=== PATIENT | male | born 1975 | race Caucasian/White ===

== ENCOUNTER 2022-10-19 11:58 | Outpatient (CLI) | payer OTHER, SELFPAY ==
[2022-10-19 22:20] LABS: Albumin* 4.8 g/dL (3.3-5.0); Chloride* 100 mmol/L (96-114)
[2022-10-19 22:21] LABS: Potassium* 5.5 mmol/L (3.6-5.1); Sodium* 141 mmol/L (135-149)
[2022-10-19 22:23] LABS: Aspartate Amino Transferase* 64 U/L (12-35); Bilirubin Total* 0.4 mg/dL (0.1-1.5); Blood Urea Nitrogen* 9 mg/dL (5-24); Carbon Dioxide* 31 mmol/L (20-32); Cholesterol* 124 mg/dL (90-199); Creatinine* 0.9 mg/dL (0.5-1.5); Estimated Glomerular Filt Rate 105 ml/min; Glucose* 125 mg/dL (60-115); Total Protein* 7.1 g/dL (6.0-8.3)
[2022-10-19 22:24] LABS: Alanine Aminotransferase* 60 U/L (4-50); Alkaline Phosphatase* 132 U/L (40-150); HDL Cholesterol* 50 mg/dL (>=40); LDL Cholesterol Calculated 49 mg/dL (<100); Triglycerides* 126 mg/dL (40-149)
[2022-10-19 22:27] LABS: Total Protein Urine < 5 mg/dL
[2022-10-19 22:29] LABS: Creatinine Urine 92.8 mg/dL
[2022-10-19 22:34] LABS: Vitamin D 25 Hydroxy* 51 ng/mL (30-80)
[2022-10-19 22:37] LABS: Microalbumin Creatinine Ratio 10 mg/g (0-30); Microalbumin Urine < 1 mg/dL
[2022-10-19 23:05] LABS: Hepatitis C Virus Antibody* Negative (Negative)
[2022-10-19 23:07] LABS: Vitamin B12* 402 pg/mL (243-894)
== END 2022-10-19 11:59 | disposition home or self-care (01) ==
PROVIDERS: PCP Family Medicine; Visit Provider Family Medicine
DX: Z00.00 Encounter for general adult medical examination without abnormal findings (principal); E55.9 Vitamin D deficiency, unspecified; E78.5 Hyperlipidemia, unspecified; E11.9 Type 2 diabetes mellitus without complications; Z11.59 Encounter for screening for other viral diseases; Z79.899 Other long term (current) drug therapy; F20.9 Schizophrenia, unspecified; F31.9 Bipolar disorder, unspecified
CPT/HCPCS: 80053; 80061; 82043; 82306; 82570; 82607; 84156; 86803

== ENCOUNTER 2023-02-08 12:25 | Outpatient (CLI) | payer OTHER, SELFPAY | END 2023-02-08 12:26 | disposition home or self-care (01) | PROVIDERS: PCP Family Medicine; Visit Provider Family Medicine | DX: E11.9 Type 2 diabetes mellitus without complications (principal); R79.89 Other specified abnormal findings of blood chemistry | CPT/HCPCS: 80053 ==

== ENCOUNTER 2024-01-13 14:05 | Outpatient (CLI) | payer OTHER, SELFPAY | END 2024-01-13 14:06 | disposition home or self-care (01) | PROVIDERS: PCP Family Medicine; Visit Provider Family Medicine | DX: E55.9 Vitamin D deficiency, unspecified (principal); E11.9 Type 2 diabetes mellitus without complications; E78.5 Hyperlipidemia, unspecified; R79.89 Other specified abnormal findings of blood chemistry; F20.9 Schizophrenia, unspecified; F31.9 Bipolar disorder, unspecified; Z13.29 Encounter for screening for other suspected endocrine disorder | CPT/HCPCS: 80053; 80061; 82043; 82306; 82570; 82607 ==

== ENCOUNTER 2025-02-22 13:02 | Outpatient (CLI) | payer OTHER, SELFPAY | END 2025-02-22 13:03 | disposition home or self-care (01) | PROVIDERS: PCP Family Medicine; Visit Provider Family Medicine | DX: E78.5 Hyperlipidemia, unspecified (principal); E11.65 Type 2 diabetes mellitus with hyperglycemia; E55.9 Vitamin D deficiency, unspecified; Z79.84 Long term (current) use of oral hypoglycemic drugs; Z12.5 Encounter for screening for malignant neoplasm of prostate; Z13.21 Encounter for screening for nutritional disorder | CPT/HCPCS: 80053; 80061; 82043; 82306; 82570; 82607; G0103 ==

== ENCOUNTER 2025-04-09 10:45 | Outpatient (CLI) | payer OTHER, SELFPAY ==
[2025-04-09 21:52] LABS: Basophils Absolute Auto 0.03 K/uL (0.00-0.30); Basophils Percent Auto 0.4 % (0.0-3.0); Eosinophils Percent Auto 1.2 % (0.0-7.0); Hematocrit 41.3 % (37.0-53.0); Hemoglobin* 13.5 gm/dL (13.5-17.5); Immature Granulocytes Abs Auto 0.02 K/uL (0.00-0.30); Immature Granulocytes Pct Auto 0.2 %; Lymphocytes Absolute Auto 2.33 K/uL (0.90-2.90); Lymphocytes Percent Auto 28.9 % (20-44); Mean Corpuscular HGB Conc 33 gm/dL (32-36); Mean Corpuscular Hemoglobin 31 pg (26-34); Mean Corpuscular Volume 96 fL (80-100); Monocytes Percent Auto 6.5 % (0.0-11.0); Neutrophils Absolute Auto 5.06 K/uL (1.7-7.0); Neutrophils Percent Auto 62.8 % (42.0-72.0); Platelet Count* 208 K/uL (140-440); RDW Coefficient of Variation % 13.5 % (11.5-15.5); White Blood Count* 8.06 K/uL (4.50-11.00)
[2025-04-09 21:53] LABS: Slide Review Reflex No
== END 2025-04-09 10:46 | disposition home or self-care (01) ==
LOC: NPINS 04-13 11:18
PROVIDERS: PCP Family Medicine; Visit Provider Psychiatry & Neurology Psychiatry
DX: F52.9 Unspecified sexual dysfunction not due to a substance or known physiological condition (principal); G47.9 Sleep disorder, unspecified; F43.10 Post-traumatic stress disorder, unspecified; F41.1 Generalized anxiety disorder; Z79.899 Other long term (current) drug therapy
CPT/HCPCS: 85025

== ENCOUNTER 2025-05-10 12:46 | Outpatient (CLI) | payer OTHER, SELFPAY ==
[2025-05-07 12:48] LABS: Basophils Absolute Auto 0.05 K/uL (0.00-0.30); Basophils Percent Auto 0.7 % (0.0-3.0); Eosinophils Absolute Auto 0.15 K/uL (0.00-0.50); Eosinophils Percent Auto 2.1 % (0.0-7.0); Hematocrit 45.1 % (37.0-53.0); Hemoglobin* 14.9 gm/dL (13.5-17.5); Immature Granulocytes Abs Auto 0.01 K/uL (0.00-0.30); Immature Granulocytes Pct Auto 0.1 %; Lymphocytes Absolute Auto 2.84 K/uL (0.90-2.90); Lymphocytes Percent Auto 39.3 % (20-44); Mean Corpuscular HGB Conc 33 gm/dL (32-36); Mean Corpuscular Hemoglobin 32 pg (26-34); Mean Corpuscular Volume 96 fL (80-100); Monocytes Percent Auto 6.1 % (0.0-11.0); Neutrophils Absolute Auto 3.73 K/uL (1.7-7.0); Neutrophils Percent Auto 51.7 % (42.0-72.0); Platelet Count* 210 K/uL (140-440); RDW Coefficient of Variation % 13.7 % (11.5-15.5); Red Blood Count 4.69 m/uL (4.30-5.90); White Blood Count* 7.22 K/uL (4.50-11.00)
[2025-05-07 12:50] LABS: Slide Review Reflex No
--- OUTSIDE RECORDS SUMMARY | 2025-05-11 02:19 | XMS_ITS | Clinical Summary ---
Author Organization [place] Address [facility] [place] [address] Care Team Providers Care Auxiliary Equipment Operator Name Role Phone Preet Link MD Primary Care Provider + [phone] Finn Hutchison [facility] Unavailable [phone] Allergies Active Allergy Reactions Criticality Noted Date Comments Erythromycin Rash Low 10/06/2006 Medications metFORMIN (GLUCOPHAGE-XR) 500 MG 24 hr tablet Take 500 mg by mouth daily (with dinner) Active venlafaxine (EFFEXOR-XR) 150 MG 24 hr capsule Take 150 mg by mouth daily 08/15/20 16 Active venlafaxine (EFFEXOR XR) 75 MG 24 hr capsule Take 75 mg by mouth daily Active atorvastatin (LIPITOR) 10 MG tablet Take 10 mg by mouth daily Active vitamin D3 (CHOLECALCIFEROL) 2000 units (50 mcg) tablet Take 2,000 Units by mouth daily Active ARIPiprazole (ABILIFY) 2 MG tablet Take 2 mg by mouth daily Active multivitamin, therapeutic (THERA-VIT) TABS tablet Take 1 tablet by mouth daily Active senna-docusate (SENOKOT-S/DANIELLE LACE) 8.6-50 MG tabletIndications :Constipation, unspecified constipation type Take 1 tablet by mouth 2 times daily as needed for constipation 30 tablet 1 02/18/20 20 Active senna-docusate (SENOKOT-S/DANIELLE LACE) 8.6-50 MG tabletIndications :Constipation, unspecified constipation type Take 2 tablets by mouth 2 times daily 120 tablet 02/18/20 20 Active cloZAPine (CLOZARIL) 100 MG tabletIndications :Paranoid schizophrenia (H) Take 3 tablets (300 mg) by mouth At Bedtime 21 tablet 02/22/20 20 Active Active Problems Problem Noted Date Diagnosed Date Paranoid schizophrenia 01/29/2020 Social History Tobacco Use Types Packs/Day Years Used Date Smoking Tobacco: Never Assessed Sex and Gender Information Value Date Recorded Sex Assigned at Not on file Legal Sex Male 12:38 PM CDT Gender Identity Not on file Sexual Orientation Not on file Last Filed Vital Signs Vital Sign Reading Time Taken Comments Blood Pressure 125/85 02/22/2020 7:37 AM CDT Pulse 98 02/22/2020 7:37 AM CDT Temperature 36.4 C (97.6 F) 02/22/2020 7:37 AM CDT Respiratory Rate 16 02/19/2020 10:2 8 AM CDT Oxygen Saturation 96% 02/20/2020 8:33 AM CDT Inhaled Oxygen Concentration - - Weight 105.2 kg (231 lb 14.4 oz) 02/21/2020 7:00 AM CDT Height 167.6 cm (5' 6) 01/29/2020 7:45 PM CDT Body Mass Index 37.43 01/29/2020 7:45 PM CDT Plan of Treatment Not on file Insurance [place] [facility] * Guarantor: Colt Guadarrama Account Type Relation to Patient Date of Phone Billing Address Medication Therapy Self [address] [place] [address] [place] Advance Directives For more information, please contact: [phone] * Full Code (Latest Code Status on File) Date Activated Date Inactivated Comments 01/29/2020 8:20 PM 02/22/2020 4:49 PM Question Answer Comments Code status determined by: Discussion with milka nt/legal decision maker Care Teams Auxiliary Equipment Operator Relationship Specialty Start Date End Date Preet Link MD PCP - General Family Practice 03/23/19 Finn Hutchison [facility] [address] [place], [place] [address] Pharmacist Pharmacist Clinician- Clinical Boiler Assistant Operator 02/24/20
--- OUTSIDE RECORDS SUMMARY | 2025-05-11 02:19 | XMS_ITS | Clinical Summary ---
Author Organization [facility] Address [address] [place] [id number] Care Team Providers Care Decision Support Analyst Name Role Phone Preet Link MD Primary Care Provide r Allergies Active Allergy Reactions Criticality Noted Date Comments Erythromycin Rash 10/06/2006 Medications clozapine (CLOZARIL) 100 mg tabletIndications:martinez icidal behavior in schizoaffective disorder Take 3 tablets by mouth at bedtime. 21 tablet 4 0 Active naphazoline-pheniram ine (VISINE-A) 0.025-0.3 % ophthalmic solutionIndications: Dry eye 1 Drop 4 times daily if needed for Eye Irritation. 1 Bottle 1 8 Active metFORMIN (GLUCOPHAGE XR) 500 mg Extended-Release tabletIndications:Co ntrolled type 2 diabetes mellitus without complication, without long-term current use of insulin (HC) Take 1 tablet by mouth once daily with evening meal. 60 tablet 9 Active Cholecalciferol, Vitamin D3, 2,000 unit tabletIndications:De pressive disorder Take 1 tablet by mouth once daily. 30 tablet 9 Active atorvastatin (LIPITOR) 10 mg tabletIndications:De pressive disorder Take 1 tablet by mouth at bedtime. 30 tablet 9 Active glipiZIDE (GLUCOTROL) 5 mg tablet Take 5 mg by mouth two times daily before meals. 3 Active Thera Take 1 Tablet by mouth once daily. 3 Active venlafaxine (EFFEXOR XR) 150 mg Extended-Release capsuleIndications:S chizoaffective disorder, depressive type (HC) Take 1 Capsule (150 mg) by mouth once daily with a meal. 30 Capsule 09/11/2023 4:23 PM CDT 3 Active Active Problems Problem Noted Date Diagnosed Date Schizoaffective disorder, depressive type 2022 Diabetes type 2, controlled 02/14/2016 Overview (02/14/2016): Diabetes type 2- dx 02/2016- started metformin Headache(784.0) 11/18/2012 Overview (11/18/2012): Uses Tramadol prn HAs Lives in [facility] 11/18/2012 Overview (06/13/2016): [facility] commercial portfolio manager and coordinator Lakia Kinney [phone] Depressive disorder, not elsewhere classified Bipolar disorder, unspecified 08/30/2010 Paranoid schizophrenia, unspecified condition Overview (02/14/2017): Jamie Pugh Following now with Candice Duncan Abnormal liver function test 08/09/2008 Unspecified constipation Nausea alone Resolved Problems Problem Noted Date Diagnosed Date Resolved Date Schizoaffective disorder, un specified condition 08/30/2010 11/18/2012 Paranoid schizophrenia, unspecified condition 08/30/20 10 11/18/2012 Paranoid schizophrenia, unspecified condition 04/11/20 10 11/18/2012 Paranoid schizophrenia, rn chronic philip condition with acute exacerbation 02/28/2010 11/18/2012 Paranoid schizophrenia, subc hronic condition with acute exacerbation 09/24/2007 11/18/2012 Schizoaffective Disorder, Un specified Condition 12/04/2006 11/18/2012 Immunizations Immunization Administration Dates Next Due MMR 02/02/1992 Td (Age >=7 Years) 03/19/2000 Tdap 08/29/2009 Tuberculin (PPD) 02/13/2016, 5,01/19/2014,11/18/2012,11/20/2010, Family History Medical History Relation Name Comments Good Health Father PTSD Good Health Mother Relation Name Status Comments Father Mother Social History Tobacco Use Types Packs/Day Years Used Date Smoking Tobacco: Never Smokeless Tobacco: Never Alcohol Use Standard Drinks/Week Comments No 0 (1 standard drink = 0.6 oz pur e alcohol) PHQ-2 Answer Date Recorded PHQ-2 TOTAL SCORE 6 09/12/2023 Social Connections Answer Date Recorded Frequency of Communication with Friends and Fami ly 0 09/04/2023 Financial Resource Strain Answer Date R ecorded Difficulty of Paying Living Expenses 3 09/04/2023 Difficulty of Paying Living Expenses Not on file 09/04/2023 Food Insecurity Answer Date Recorded Do you worry your food will run out before you are able to buy more? 1 09/04/2023 Transportation Needs Answer Date Record ed Lack of Transportation (Medical) 2 09/04/2023 Housing Stability Answer Date Recorded What is your housing situation today? 1 09/04/2023 Sex and Gender Information Value Date Recorded Sex Assigned at Not on file Legal Sex Male 6:55 AM UNDERWRITING ACCOUNT REPRESENTATIVE Gender Identity Not on file Sexual Orientation Not on file Occupation Industry Job Start Date Job End Date DISABLED Not on file Not on file Not on file Obstetrics History Last Filed Vital Signs Vital Sign Reading Time Taken Comments Blood Pressure 120/74 09/12/2023 5:32 AM CDT Pulse 93 09/12/2023 5:32 AM CDT Temperature 36.4 C (97.5 F) 09/12/2023 5:32 AM CDT Respiratory Rate 14 09/12/2023 5:32 AM CDT Oxygen Saturation 96% 09/12/2023 5:32 AM CDT Inhaled Oxygen Concentration - - Weight 96.4 kg (212 lb 8 oz) 09/09/2023 5:00 AM CDT Height 166.4 cm (5' 5.5) 09/04/2023 3:18 PM CDT Body Mass Index 34.82 09/04/2023 3:18 PM CDT Plan of Treatment Health Maintenance Due Date Last Done Comments HIV for age 15-65 1989 Hepatitis C screening for ag e 18-79 1992 Hepatitis B series for 19+ ( 1 of 3 - 19+ 3-dose series) 1993 Pneumococcal series for age 50+ (1 of 2 - PCV) 1993 BMI (ht and wt on same day) for age 18+ 02/19/2019 02/19/2018, 08/06/2017, 02/14/2017, Additional history exists Colonoscopy through age 75 2019 Tetanus booster 08/29/2019 08/29/2009, 03/19/2000 Zoster (shingles) series for age 50+ (1 of 2) 2024 COVID-19 vaccine series ( - season) 2024 Depression screening for age 12+ 09/04/2024 09/04/2023, 04/17/2019, 04/08/2019, Additional history exists Influenza Vaccine (Season Ended) 2025 Lipids for age 45-75 09/08/2028 09/08/2023, 02/19/2018, 12/26/2016, Additional history exists Tdap Completed 08/29/2009 Procedures Procedure Name Priority Date/Time Associated Diagnosis Comments LIPID PANEL Early AM 09/08/2023 6:21 AM CDT from Last 3 Months or Most Recently Relevant to Health Maintenance Results * LIPID PANEL (09/08/2023 6:21 AM CDT) CHOLESTEROL,TOTAL 107 100 - 199 mg/dL 09/08/2023 3:55 PM CDT [facility] Comment: Cholesterol, Total Reference Ranges Desirable <200 mg/dL Borderline 200-239 mg/dL High >=240 mg/dL TRIGLYCERIDES 133 <150 mg/dL 09/08/2023 3:55 PM CDT [facility] HDL CHOLESTEROL 41 >40 mg/dL 3:55 PM CDT [facility] NON-HDL CHOLESTEROL 66 <145 mg/dl 09/08/2023 3:55 PM CDT [facility] CHOL/HDL RATIO 2.61 <4.50 09/08/2023 3:55 PM CDT [facility] LDL CHOLESTEROL 39 <=130 mg/dL 09/08/2023 3:55 PM CDT [facility] VLDL CHOLESTEROL 27 <=30 mg/dL 09/08/2023 3:55 PM CDT [facility] PROVIDER ORDERED STATUS RANDOM 09/08/2023 3:55 PM CDT [facility] Blood BLOOD SPECIMEN / Unknown Venipuncture / Unknown 09/08/2023 6:21 AM CDT 09/08/2023 6:24 AM CDT Felisha Cheung MD CHEMISTRY Final Result [facility] [address] [place] [address], [facility] [address] [place] [phone] from Last 3 Months or Most Recently Relevant to Health Maintenance Insurance MEDICA ACCESSABILITY SOLUTION [facility] MEDICA PMAP [place] ONLY Advance Directives * Full Code (Latest Code Status on File) Date Activated Date Inactivated Comments 09/05/2023 7:21 AM 09/12/2023 1:14 PM Question Answer Comments Code Status Discussion: Reviewed Preferences * Full Code Date Activated Date Inactivated Comments 09/04/2023 2:06 PM 09/04/2023 3:06 PM Question Answer Comments Code Status Discussion: Reviewed Preferences * Full Code Date Activated Date Inactivated Comments 04/06/2019 8:37 PM 04/16/2019 4:05 PM * Full Code Date Activated Date Inactivated Comments 08/29/2010 10:17 PM 09/05/2010 4:08 PM * Full Code Date Activated Date Inactivated Comments 04/12/2010 3:44 PM 04/27/2010 3:00 PM Care Teams Decision Support Analyst Relationship Specialty Start Date End Date Preet Link MD [address] [place] [address] PCP - General Family Practice 02/14/17
--- OUTSIDE RECORDS SUMMARY | 2025-05-11 02:19 | XMS_ITS | Clinical Summary ---
Author Organization [facility] Address [address] [address] Phone Care Team Providers Care Cost Engineer Name Role Phone Unavailable Primary Care Provider Unavailabl e Allergies Active Allergy Reactions Criticality Noted Date Comments Erythromycin 03/24/2019 Medications * This document contains information received from the source organization and may not represent a complete record from that organization. cloZAPine (CLOZARIL) 100 MG tablet Take 3 Tabs by mouth every evening. 28 Tab 9 Active cloZAPine (CLOZARIL) 100 MG tablet Take 3 Tabs by mouth one time a day. 90 Tab 9 Active atorvaSTATin (LIPITOR) 20 MG tablet Take 1 Tab by mouth one time a day. 30 Tab 9 Active Cholecalciferol 1000 UNIT Tablet Take 2 Tabs by mouth one time a day with breakfast. 60 Each 9 Active metFORMIN-XR (GLUCOPHAGE XR) 500 MG 24 hour tablet Take 1 Tab by mouth every morning with breakfast. Swallow tablet whole; do not crush, divide or chew. 30 Tab 9 Active venlafaxine (EFFEXOR-XR) 150 MG 24 hour extended release capsule Take 1 Cap by mouth every evening. Swallow capsule whole; do not crush or chew. Capsule may be opened and sprinkled on food. 30 Cap 9 Active Active Problems Problem Noted Date Diagnosed Date Schizoaffective disorder, depressive type 2018 Social History Tobacco Use Types Packs/Day Years Used Date Smoking Tobacco: Never Smokeless Tobacco: Never Alcohol Use Standard Drinks/Week Comments Not Currently 0 (1 standard drink = 0.6 oz pur e alcohol) AUDIT-C Answer Date Recorded Frequency of Alcohol Consumption Never 03/24/2019 Average Number of Drinks Not asked 019 Frequency of Binge Drinking Never 03/11 Sex and Gender Information Value Date Recorded Sex Assigned at Male 03/24/2019 9:16 PM CDT Legal Sex Male 4:56 PM CDT Gender Identity Male 03/24/2019 9:16 PM CDT Sexual Orientation Not on file Obstetrics History Last Filed Vital Signs Vital Sign Reading Time Taken Comments Blood Pressure 126/85 04/03/2019 12:14 PM CDT Pulse 103 04/03/2019 12:14 PM CDT Temperature 37.2 C (98.9 F) 04/03/2019 12:14 PM CDT Respiratory Rate 16 04/03/2019 12:14 PM CDT Oxygen Saturation 96% 04/03/2019 12:14 PM CDT Inhaled Oxygen Concentration - - Weight 94.2 kg (207 lb 9.6 oz) 03/29/2019 7:50 A M CDT Height 167.6 cm (5' 6) 03/24/2019 9:18 PM CDT Body Mass Index 33.51 03/24/2019 9:18 PM CDT Plan of Treatment Health Maintenance Due Date Last Done Comments CT Colonography 1974 Cologuard 1975 Colonoscopy 1974 Colorectal Cancer Screening 1974 FIT/FOBT 1974 Sigmoidoscopy 1974 Hepatitis B Vaccine (Standin g Order) (1 of 3 - 19+ 3-dose series) 1993 PERTUSSIS (Standing Order) 1993 TETANUS (Standing Order) 1993 Pneumococcal Vaccine: 50+ yr s (Standing Order) (1 of 1 - PCV) 2024 Shingrix (Zoster recombinant ) vaccine (Standing Order) (1 of 2) 2024 HPV Vaccine (Standing Order) Aged Out No longer eligible based on patient's age to complete this topic Insurance MEDICA CHOICE Advance Directives For more information, please contact: [phone] * Full Code (Latest Code Status on File) Date Activated Date Inactivated Comments 03/24/2019 11:14 PM 04/03/2019 5:09 PM
== END 2025-05-10 12:47 | disposition home or self-care (01) ==
LOC: NPINS 12:46
PROVIDERS: PCP Family Medicine; Visit Provider Psychiatry & Neurology Psychiatry
DX: Z79.899 Other long term (current) drug therapy (principal)
CPT/HCPCS: 85025

== ENCOUNTER 2025-06-04 10:44 | Outpatient (CLI) | payer OTHER, SELFPAY ==
[2025-06-04 23:08] LABS: Hematocrit 43.9 % (37.0-53.0); Hemoglobin* 14.3 gm/dL (13.5-17.5); Immature Granulocytes Abs Auto 0.01 K/uL (0.00-0.30); Immature Granulocytes Pct Auto 0.2 %; Lymphocytes Absolute Auto 2.08 K/uL (0.90-2.90); Mean Corpuscular HGB Conc 33 gm/dL (32-36); Mean Corpuscular Hemoglobin 31 pg (26-34); Mean Corpuscular Volume 97 fL (80-100); RDW Coefficient of Variation % 13.5 % (11.5-15.5); Red Blood Count 4.55 m/uL (4.30-5.90); White Blood Count* 6.57 K/uL (4.50-11.00)
[2025-06-04 23:11] LABS: Slide Review Reflex No
== END 2025-06-04 10:45 | disposition home or self-care (01) ==
LOC: NPINS 10:45
PROVIDERS: PCP Family Medicine; Visit Provider Psychiatry & Neurology Psychiatry
DX: Z79.899 Other long term (current) drug therapy (principal)
CPT/HCPCS: 85025

== ENCOUNTER 2025-07-01 10:56 | Outpatient (CLI) | payer OTHER, SELFPAY ==
[2025-07-01 12:59] LABS: Hematocrit* 41.5 % (37.0-53.0); Hemoglobin* 13.6 gm/dL (13.5-17.5); Immature Granulocytes Abs Auto 0.02 K/uL (0.00-0.30); Immature Granulocytes Pct Auto 0.3 %; Lymphocytes Absolute Auto 1.91 K/uL (0.90-2.90); Mean Corpuscular HGB Conc 33 gm/dL (32-36); Mean Corpuscular Hemoglobin 31 pg (26-34); Mean Corpuscular Volume 96 fL (80-100); RDW Coefficient of Variation % 13.6 % (11.5-15.5); Red Blood Count* 4.34 m/uL (4.30-5.90); White Blood Count* 7.01 K/uL (4.50-11.00)
[2025-07-01 13:02] LABS: Slide Review Reflex No
== END 2025-07-01 10:57 | disposition home or self-care (01) ==
LOC: NPINS 10:59
PROVIDERS: PCP Family Medicine; Visit Provider Psychiatry & Neurology Psychiatry
DX: Z79.899 Other long term (current) drug therapy (principal)
CPT/HCPCS: 85025

== ENCOUNTER 2025-07-30 10:35 | Outpatient (CLI) | payer OTHER, SELFPAY ==
[2025-07-30 13:27] LABS: Hematocrit* 42.8 % (37.0-53.0); Hemoglobin* 13.9 gm/dL (13.5-17.5); Immature Granulocytes Abs Auto 0.03 K/uL (0.00-0.30); Immature Granulocytes Pct Auto 0.5 %; Lymphocytes Absolute Auto 1.66 K/uL (0.90-2.90); Mean Corpuscular HGB Conc 33 gm/dL (32-36); Mean Corpuscular Hemoglobin 31 pg (26-34); Mean Corpuscular Volume 96 fL (80-100); RDW Coefficient of Variation % 13.4 % (11.5-15.5); Red Blood Count* 4.48 m/uL (4.30-5.90); White Blood Count* 6.57 K/uL (4.50-11.00)
[2025-07-30 13:34] LABS: Slide Review Reflex No
== END 2025-07-30 10:36 | disposition home or self-care (01) ==
LOC: NPINS 10:37
PROVIDERS: PCP Family Medicine; Visit Provider Psychiatry & Neurology Psychiatry
DX: Z79.899 Other long term (current) drug therapy (principal)
CPT/HCPCS: 80159; 85025

== ENCOUNTER 2025-08-27 10:53 | Outpatient (CLI) | payer OTHER, SELFPAY ==
[2025-08-27 12:54] LABS: Hematocrit* 42.5 % (37.0-53.0); Hemoglobin* 13.8 gm/dL (13.5-17.5); Immature Granulocytes Abs Auto 0.02 K/uL (0.00-0.30); Immature Granulocytes Pct Auto 0.3 %; Lymphocytes Absolute Auto 1.97 K/uL (0.90-2.90); Mean Corpuscular HGB Conc 33 gm/dL (32-36); Mean Corpuscular Hemoglobin 31 pg (26-34); Mean Corpuscular Volume 96 fL (80-100); RDW Coefficient of Variation % 13.4 % (11.5-15.5); Red Blood Count* 4.44 m/uL (4.30-5.90); White Blood Count* 7.92 K/uL (4.50-11.00)
[2025-08-27 13:08] LABS: Slide Review Reflex No
== END 2025-08-27 10:54 | disposition home or self-care (01) ==
LOC: NPINS 10:56
PROVIDERS: PCP Family Medicine; Visit Provider Psychiatry & Neurology Psychiatry
DX: Z79.899 Other long term (current) drug therapy (principal)
CPT/HCPCS: 80159; 85025

== ENCOUNTER 2025-09-24 12:29 | Outpatient (CLI) | payer OTHER, SELFPAY ==
[2025-09-24 12:52] LABS: Hematocrit* 42.4 % (37.0-53.0); Hemoglobin* 13.8 gm/dL (13.5-17.5); Immature Granulocytes Abs Auto 0.02 K/uL (0.00-0.30); Immature Granulocytes Pct Auto 0.3 %; Lymphocytes Absolute Auto 2.30 K/uL (0.90-2.90); Mean Corpuscular HGB Conc 33 gm/dL (32-36); Mean Corpuscular Hemoglobin 32 pg (26-34); Mean Corpuscular Volume 97 fL (80-100); RDW Coefficient of Variation % 13.0 % (11.5-15.5); Red Blood Count* 4.37 m/uL (4.30-5.90); White Blood Count* 6.96 K/uL (4.50-11.00)
[2025-09-24 12:58] LABS: Slide Review Reflex No
== END 2025-09-24 12:35 | disposition home or self-care (01) ==
LOC: NPINS 10-14 13:46
PROVIDERS: PCP Family Medicine; Visit Provider Psychiatry & Neurology Psychiatry
DX: Z79.899 Other long term (current) drug therapy (principal)
CPT/HCPCS: 80159; 85025

== ENCOUNTER 2025-09-29 08:27 | Outpatient (CLI) | payer OTHER, SELFPAY | END 2025-09-29 08:28 | disposition home or self-care (01) | LOC: FRMREF 08:27 | PROVIDERS: PCP Family Medicine; Visit Provider Family Medicine | DX: E11.9 Type 2 diabetes mellitus without complications (principal); R79.89 Other specified abnormal findings of blood chemistry | CPT/HCPCS: 80053 ==

== ENCOUNTER 2025-10-22 11:05 | Outpatient (CLI) | payer OTHER, SELFPAY ==
[2025-10-22 21:50] LABS: Hematocrit* 43.0 % (37.0-53.0); Hemoglobin* 14.5 gm/dL (13.5-17.5); Immature Granulocytes Abs Auto 0.02 K/uL (0.00-0.30); Immature Granulocytes Pct Auto 0.3 %; Lymphocytes Absolute Auto 2.33 K/uL (0.90-2.90); Mean Corpuscular HGB Conc 34 gm/dL (32-36); Mean Corpuscular Hemoglobin 31 pg (26-34); Mean Corpuscular Volume 93 fL (80-100); RDW Coefficient of Variation % 13.3 % (11.5-15.5); Red Blood Count* 4.63 m/uL (4.30-5.90); White Blood Count* 7.48 K/uL (4.50-11.00)
[2025-10-22 21:53] LABS: Slide Review Reflex No
== END 2025-10-22 11:06 | disposition home or self-care (01) ==
LOC: NPINS 11:09
PROVIDERS: PCP Family Medicine; Visit Provider Psychiatry & Neurology Psychiatry
DX: Z79.899 Other long term (current) drug therapy (principal)
CPT/HCPCS: 85025